=== PATIENT | male | born 1985 | race Caucasian/White ===

== ENCOUNTER 2017-03-11 21:50 | Emergency (ER) | payer BC ==
[~2017-03-11] VITALS: Ht 185.4 cm; Wt 150.0 kg
[2017-03-11 21:55] VITALS: Ht 185.4 cm; Wt 150.0 kg
--- OUTSIDE RECORDS SUMMARY | 2017-03-11 21:56 | XMS REPORT | Referral Summary ---
Author Author [facility] Organization [facility] Address Unknown Phone Unavailable Care Team Providers Care Tar Processing Technician Name Role Phone Denia Mccall Primary Care Physician [phone] Encounter [facility] [id number] Date(s): 10/29/16 - 10/29/16 [facility] [address] [place] [address] Discharge Diagnosis: Asthma exacerbation Discharge Disposition: 01-Home or Self Care Attending Physician: Ceferino Loza MD Admitting Physician: Ceferino Loza MD Vital Signs Most recent to 1 oldest [Reference Range]: Temperature Oral 36.8 degC [35.8-37.3 degC] (10/29/16 2:56 AM) Peripheral Pulse 116 bpm Rate [60-100 bpm] *HI* (10/29/16 4:49 AM) Heart Rate Monitored 94 bpm [60-100 bpm] (10/29/16 3:53 AM) Respiratory Rate 16 br/min [14-20 br/min] (10/29/16 4:49 AM) Blood Pressure 142/98 mmHg [90-140/60-90 mmHg] *HI* (10/29/16 4:49 AM) SpO2 99 % (10/29/16 4:49 AM) Problem List Condition Effective Dates Status Health Status Informant Asthma(Confirmed) Active MRSA(Confirmed) Active Allergies, Adverse Reactions, Alerts Substance Reaction Severity Status ibuprofen Rash Severe Active Anaphylactic reaction Medications Colace 100 mg oral capsule 100 mg 1 caps, Oral, BID, as needed for constipation, while taking pain medication, # 20 caps, 0 Refill(s) Start Date: 10/01/16 Status: Ordered Diflucan 150 mg oral tablet 150 mg 1 tabs, Oral, Once, # 1 tabs, 0 Refill(s) Start Date: 06/06/16 Status: Ordered HYDROcodone-acetaminophen 5 mg-325 mg oral tablet 1 tabs, Oral, q4hr, Pain Moderate (4-6), # 12 tabs, 0 Refill(s) Start Date: 10/01/16 Status: Ordered Daniel 5 mg-325 mg oral tablet 1 tabs, Oral, q6hr, as needed for pain, # 12 tabs, 0 Refill(s) Start Date: 06/06/16 Status: Ordered predniSONE 20 mg oral tablet 20 mg 1 tabs, Oral, Daily, day 1, 3 tabs 60mg day 2, 2 tabs 40 mg day 3-5, 1 tab 20 mg, # 8 tabs, 0 Refill(s) Start Date: 10/29/16 Stop Date: 10/29/17 Status: Ordered ProAir HFA 90 mcg/inh inhalation aerosol 2 puffs, Inhalation, QID, as needed for wheezing, # 8.5 g, 0 Refill(s) Start Date: 10/29/16 Status: Ordered Results No data available for this section Immunizations No data available for this section Procedures Procedure Date Related Diagnosis Body Site Operation on retina Social History Social History Type Response Smoking Status Never smoker Assessment and Plan No data available for this section
--- OUTSIDE RECORDS SUMMARY | 2017-03-11 21:56 | XMS REPORT | Referral Summary ---
Author Author [facility] Organization [facility] Address Unknown Phone Unavailable Care Team Providers Care Paperback Machine Operator Name Role Phone Denia Mccall Primary Care Physician [phone] [facility] [id number] Date(s): 10/03/16 - 10/03/16 [facility] [address] [place] [address]- Discharge Diagnosis: External hemorrhoid Discharge Diagnosis: Change or removal of wound packing Discharge Disposition: 01-Home or Self Care Attending Physician: Anil Herrera MD Admitting Physician: Anil Herrera MD Vital Signs Most recent to 1 oldest [Reference Range]: Temperature Oral 36.9 degC [35.8-37.3 degC] (10/03/16 5:22 PM) Peripheral Pulse 106 bpm Rate [60-100 bpm] *HI* (10/03/16 7:02 PM) Respiratory Rate 16 br/min [14-20 br/min] (10/03/16 7:02 PM) Blood Pressure 126/93 mmHg [90-140/60-90 mmHg] (10/03/16 7:02 PM) SpO2 100 % (10/03/16 7:02 PM) Problem List Condition Effective Dates Status Health Status Informant MRSA(Confirmed) Active Allergies, Adverse Reactions, Alerts Substance Reaction Severity Status ibuprofen Rash Severe Active Anaphylactic reaction Medications Aveeno Anti-Itch 3%-1% topical cream 1 dia, Topical, TID, X 14 days, # 50 g, 0 Refill(s) Start Date: 10/03/16 Stop Date: 10/17/16 Status: Ordered Colace 100 mg oral capsule 100 mg [...] 0 Refill(s) Start Date: 10/01/16 Status: Ordered [place] 5 mg-325 mg oral tablet 1 tabs, Oral, q6hr, X 4 days, # 16 tabs, 0 Refill(s) Start Date: 10/03/16 Stop Date: 10/07/16 Status: Ordered [place] 5 mg-325 mg oral tablet 1 tabs, Oral, q6hr, as needed for pain, # 12 tabs, 0 Refill(s) Start Date: 06/06/16 Status: Ordered Percocet 5/325 oral tablet 1 tabs, Oral, q6hr, as needed for pain, X 3 days, # 12 tabs, 0 Refill(s) Start Date: 10/03/16 Stop Date: 10/06/16 Status: Ordered Results No data available for this section Immunizations No data available for this section Procedures Procedure Date Related Diagnosis Body Site Operation on retina Social History Social History Type Response Smoking Status Never smoker Assessment and Plan No data available for this section
--- OUTSIDE RECORDS SUMMARY | 2017-03-11 21:56 | XMS REPORT | Referral Summary ---
Author Author [facility] Organization [facility] Address Unknown Phone Unavailable Care Team Providers Care Electronic Publisher Name Role Phone No PCP, Pt States Primary Care Physician [phone] Encounter [facility] Date(s): 06/06/16 - 06/06/16 [facility] [address] [place] [address] Discharge Diagnosis: Fractured tooth Discharge Disposition: 01-Home or Self Care Attending Physician: Ceferino Loza MD Admitting Physician: Ceferino Loza MD Vital Signs Most recent to 1 oldest [Reference Range]: Temperature Oral 36.8 degC [35.8-37.3 degC] (06/06/16 5:05 AM) Peripheral Pulse 92 bpm Rate [60-100 bpm] (06/06/16 5:05 AM) Heart Rate Monitored 90 bpm [60-100 bpm] (06/06/16 6:13 AM) Respiratory Rate 20 br/min [14-20 br/min] (06/06/16 6:13 AM) Blood Pressure 141/90 mmHg [90-140/60-90 mmHg] *HI* (06/06/16 6:13 AM) Mean Arterial 108 mmHg Pressure, Cuff (06/06/16 6:13 AM) SpO2 95 % (06/06/16 6:13 AM) Problem List Condition Effective Dates Status Health Status Informant MRSA(Confirmed) Active Allergies, Adverse Reactions, Alerts Substance Reaction Severity Status ibuprofen Rash Severe Active Anaphylactic reaction Medications clindamycin 150 mg oral capsule 450 mg 3 caps, Oral, q8hr, X 7 days, # 63 caps, 0 Refill(s) Start Date: 06/06/16 Stop Date: 06/13/16 Status: Ordered Diflucan 150 mg oral tablet 150 mg 1 tabs, Oral, Once, # 1 tabs, 0 Refill(s) Start Date: 06/06/16 Status: Ordered [place] 5 mg-325 mg oral tablet 1 tabs, Oral, q6hr, as needed for pain, # 12 tabs, 0 Refill(s) Start Date: 06/06/16 Status: Ordered Results No data available for this section Immunizations No data available for this section Procedures No data available for this section Social History Social History Type Response Smoking Status Never smoker Assessment and Plan No data available for this section
--- OUTSIDE RECORDS SUMMARY | 2017-03-11 21:56 | XMS REPORT | Referral Summary ---
Author Author [facility] Organization [facility] Address Unknown Phone Unavailable Care Team Providers Care Finish Off Operator Name Role Phone Denia Mccall Primary Care Physician [phone] Encounter [facility] [id number] Date(s): 10/01/16 - 10/01/16 [facility] [address] [place] [address]- Discharge Diagnosis: Thrombosed hemorrhoids Discharge Disposition: 01-Home or Self Care Attending Physician: Anil Herrera MD Admitting Physician: Anil Herrera MD Vital Signs Most recent to 1 oldest [Reference Range]: Temperature Oral 36.8 degC [35.8-37.3 degC] (10/01/16 6:20 PM) Peripheral Pulse 100 bpm Rate [60-100 bpm] (10/01/16 7:55 PM) Respiratory Rate 18 br/min [14-20 br/min] (10/01/16 7:55 PM) Blood Pressure 140/103 mmHg [90-140/60-90 mmHg] (10/01/16 7:55 PM) SpO2 96 % (10/01/16 7:55 PM) Problem List Condition Effective Dates Status [...] 0 Refill(s) Start Date: 10/01/16 Status: Ordered [place] 5 mg-325 mg oral tablet 1 tabs, [...]
--- OUTSIDE RECORDS SUMMARY | 2017-03-11 21:56 | XMS REPORT | Continuity of Care Document ---
Author Author [facility] Organization [facility] Address Unknown Phone Unavailable Allergies Active Description Code Type Severity Reaction Onset Reported/Identified Relationship to Patient Clinical Status Yes No Known Allergies No Known Allergies Drug Allergy Unknown N/A 08/11/2013 Medications Problems Procedures Results Test Result Range CHEM/HEM PROFILE-BEDSIDE - 08/11/13 12:06 POTASSIUM 4.3 mmol/L 3.5-5.3 METHOD Bedside ANION GAP 19 mmol/L 10-20 METHOD Bedside GLUCOSE 254 mg/dL 70-99 BLOOD UREA NITROGEN 12 mg/dL 7-20 CREATININE 0.8 mg/dL 0.8-1.3 HEMOGLOBIN 16.0 gm/dL 14.0-18.0 HEMATOCRIT 47.0 % 40.0-54.0 SODIUM 138 mmol/L 135-148 CHLORIDE 101 mmol/L 98-110 CARBON DIOXIDE 25 mmol/L 21-32 CALCIUM IONIZED 4.8 mg/dL 4.5-5.3 CBC W/DIFF - 08/11/13 12:15 EOSINOPHIL # 0.2 k/cumm 0.1-0.5 EOSINOPHIL % 2 % 2-4 GRANULOCYTE # 4.7 k/cumm 2.0-9.0 GRANULOCYTE % 61 % 50-75 LYMPHOCYTE # 2.3 k/cumm 1.0-4.0 LYMPHOCYTE % 29 % 20-30 MEAN CELL HGB 27.4 pg 27.0-33.0 MEAN CELL HGB CONCENTRATION 34.2 g/dL 32.0-37.0 MEAN CELL VOLUME 80.0 fl 80.0-100.0 MONOCYTE # 0.6 k/cumm 0.1-1.0 MONOCYTE % 8 % 4-6 RED BLOOD CELL 5.85 m/cumm 4.00-6.00 RED CELL DISTRIBUTION WIDTH 13.8 % 11.0- 15.6 WHITE BLOOD CELL 7.8 k/cumm 5.0-10.0 HEMOGLOBIN 16.0 gm/dL 14.0-18.0 HEMATOCRIT 46.8 % 40.0-54.0 PLATELET COUNT 181 k/cumm 150-400 URINALYSIS WITH MICROSCOPIC - 08/11/13 12:15 UA LEUKOCYTE ESTERASE DIPSTICK NEGATIVE NEGATIVE UA NITRITE DIPSTICK NEGATIVE NEGATIVE UA PROTEIN DIPSTICK TRACE NEGATIVE UA GLUCOSE DIPSTICK 3+ NEGATIVE UA KETONE DIPSTICK NEGATIVE NEGATIVE UA UROBILINOGEN DIPSTICK NORMAL NORMAL UA BILIRUBIN DIPSTICK NEGATIVE NEGATIVE UA BLOOD DIPSTICK 2+ NEGATIVE UA RBC 3-5 rbc/hpf 0 - 3 UA VOLUME FOR EXAM 3.0 mL (12mL STD) UA WBC 0-1 wbc/hpf 0 - 5 UA SPECIFIC GRAVITY 1.032 1.015-1.025 UR PH 5.0 5.0-7.0 URINALYSIS, ROUTINE - 09/14/15 11:56 UA LEUKOCYTE ESTERASE DIPSTICK NEGATIVE NEGATIVE UA NITRITE DIPSTICK NEGATIVE NEGATIVE UA PROTEIN DIPSTICK TRACE NEGATIVE UA GLUCOSE DIPSTICK 3+ NEGATIVE UA KETONE DIPSTICK 1+ NEGATIVE UA UROBILINOGEN DIPSTICK NORMAL NORMAL UA BILIRUBIN DIPSTICK NEGATIVE NEGATIVE UA BLOOD DIPSTICK NEGATIVE NEGATIVE UA SPECIFIC GRAVITY 1.015 1.015-1.025 UR PH 6.0 5.0-7.0 UA MICROSCOPIC - 09/14/15 11:56 UA EPITHELIAL CELLS 1+ epi/hpf 0 - 1+ UA RBC 0 rbc/hpf 0 - 3 UA VOLUME FOR EXAM 12.0 mL (12mL STD) UA WBC 2-5 wbc/hpf 0 - 5 Encounters [facility] No. Visit Date/Time Discharge Status Pt. Type Provider Facility Loc./Unit Complaint [id number] 09/15/2015 08:36:00 2014 09:25:00 DIS Emergency Juan Duncan DO [facility] W[facility]EDW [id number] 09/14/2015 11:42:00 2014 12:40:00 DIS Emergency Adrian Wilson DO [facility] W[facility]EDW [id number] 08/11/2013 11:48:00 2012 14:28:00 DIS Emergency Otoniel ROWLAND, Jaqui Chau [facility] W[facility]EDS
[2017-03-11] MEDS ORDERED: LIRA0.6P SQ (22:13)
[2017-03-11] MEDS ORDERED: CETI-115 PO (22:13)
--- NOTE | 2017-03-11 22:28 | ERPDOC ---
Departure Disposition Decision Date: March 12, 2017 Disposition Decision Time: 00:33 (ZENOBIA GUTIERREZ APRN) Disposition: 01 DISCHARGED HOME, SELF-CARE Impression Impression (ZENOBIA GUTIERREZ APRN) Impression: Primary Impression: Viral illness Additional Impressions: Hyperglycemia without ketosis Dehydration Seen By: Mid-level only (ZENOBIA GUTIERREZ APRN) Referrals: [facility] 1 Week Patient Instructions: Balanitis (ED), Type 2 Diabetes in Adults (ED), Viral Syndrome (ED) Problems/Meds/Labs Reviewed?: Yes Medications reviewed and manag: Yes (ZENOBIA GUTIERREZ APRN) Follow up care ordered?: Yes Mental Status: Alert, Oriented (ZENOBIA GUTIERREZ APRN) Scripts Hydrocodone/Acetaminophen ([place] 5-325 Tablet) 5-325 Tablet 1 TAB PO Q4HR Y for PAIN for 2 Days, #12 TAB 0 Refills Prov: LÁZARO NEVAREZ DO 03/12/17 Clotrimazole/Betamethasone Dip (Lotrisone Cream) 15 Gm Cream..g. 1 APPLIC TOP BID for 5 Days, G Prov: ZENOBIA GUTIERREZ APRN 03/12/17 HPI - General Medical General Chief Complaint: Diabetic Problem Stated Complaint: BLOOD SUGAR FLUCTUATING,HURTS ALL OVER,CHILLING Time Seen by Provider: 22:24 Source: patient, family Exam Limitations: no limitations (ZENOBIA GUTIERREZ APRN) Time Seen by Provider: 22:24 (LÁZARO NEVAREZ DO) HPI - General Medical Initial Comments Patient complains of overall malaise, body aches and chills for t he past couple of days. Reports started victoza a few weeks ago and possibly his sx first started then . His major complaints are related to all over body aching and "feels like i got hit by a truck" Patient also is concerned about having HPV and these sx being related to that. Patient is currently being treated for balanitis with diflucan and monostat cream. Occurred At: home Onset: Rapid Duration: 12-24 hrs Modifying Factors: WORSE WITH: cold therapy Associated Symptoms: cough, loss of appetite, DENIES: diaphoresis, fever/chills , syncope Hx of Similar Symptoms: No (ZENOBIA GUTIERREZ APRN) Allergies: Coded Allergies: ibuprofen (Verified Allergy, Unknown, 03/11/17) meloxicam (Verified Allergy, Unknown, 03/11/17) metformin (Verified Allergy, Unknown, 03/11/17) buspirone (Verified Adverse Reaction, Unknown, VOMITING, 03/11/17) Review of Systems Constitutional Constitutional: see HPI, DENIES: appetite decrease, chills, fever (ZENOBIA GUTIERREZ E SALON MANAGER) Eyes General: DENIES: burning, itching Lids/Accessories: DENIES: erythema, lumps/nodules, swelling Vision: DENIES: double vision (ZENOBIA GUTIERREZ E WILDER) ENMT Ears: DENIES: pain Hearing: DENIES: tinnitus Balance: DENIES: vertigo Sinuses: DENIES: congestion Nose: DENIES: pain Mouth/Throat: DENIES: scratchy throat, sore throat (ZENOBIA GUTIERREZ E SALON MANAGER) Cardiovascular Cardiac: DENIES: chest pain, orthopnea Rhythm/Rate: DENIES: irregular beat Vascular: DENIES: pedal edema, unilateral swelling (ZENOBIA GUTIERREZ APRN) Pulmonary Respiratory: DENIES: cough, pleuritic chest pain, sputum (ZENOBIA GUTIERREZ E SALON MANAGER ) GI Upper Abdomen: DENIES: nausea, pain Lower Abdomen: DENIES: diarrhea (ZENOBIA GUTIERREZ APRN) General: DENIES: dysuria, frequency (ZENOBIA GUTIERREZ E SALON MANAGER) Neurological General: headache, weakness (generalized ) (ZENOBIA GUTIERREZ E WILDER) Hematologic/Lymphatic Hematologic/Lymphatic: DENIES: anemia (ZENOBIA GUTIERREZ APRN) Physical Exam General General Nourishment: well nourished, well developed, obese (ZENOBIA GUTIERREZ E WILDER) Vitals and Pain First Documented Vital Signs Date Time Temp Pulse Resp B/P Pulse Ox O2 Delivery O2 Flow Rate FiO2 03/11/17 21:55 98.0 112 18 149/86 96 Room Air (LÁZARO NEVAREZ DO) Vitals and Pain Weight: Kilograms: 150.000 Height (feet): 6 Height (inches): 1.00 Triage Pain Scale: (ZENOBIA GUTIERREZ APRN) Normal Exams: Head: Normocephalic w/o trauma ENMT: No facial trauma, nasal exudates, pharyngeal erythema, or exudates are noted Chest/Resp: Clear all novak, with good airflow, and symmetry bilaterally CV: Regular rate and rhythm, without murmur or gallop, Pulses 2+ all extremities, capillary refill, <2 seconds all ext., no pedal edema noted Abdomen: Bowel sounds positive, soft, non-tender, non-distended, no hepatosplenomegaly, masses or bruits noted Lymphatic: No lymphadenopathy, or lymphedema noted Musculoskeletal: No tenderness, or deformity noted, good range of motion, all extremities Integumentary: No rashes, hives, or bruising noted, hair and nails, without abnormality Neurologic: Patient is alert, and oriented, cranial nerves, motor/sensory/ cerebellar, exams w/o gross deficits, to observation Psychiatric: Patient exhibits, appropriate attention, emotion and affect (ZENOBIA GUTIERREZ APRN) Differential Diagnoses Considering: Acute AK, CVA, Hypo/Hyperkalemia, Hypo/Hypernatremia, Intracranial Hemorrhage, Medication Effect (ZENOBIA GUTIERREZ APRN) Progress Results/Orders Orders Procedure Category Date Status Time Cmp - Comprehensive LAB 03/11/17 Complete Metabolic 22:25 Cbc W/Auto LAB 03/11/17 Complete Diff-Reflex Manual 22:25 Ua, Dip Wreflex LAB 03/11/17 Complete Microsc & Finger Waver 22:25 Bgm (Ed) EDM 03/11/17 Transmitted 22:25 Iv Lock (Ed Only) EDM 03/11/17 Transmitted 22:25 Normal Saline (Normal PHA 03/11/17 Logged Saline Iv) 22:30 Ondansetron Inj PHA 03/11/17 Logged (Zofran) 22:45 Hydromorphone PHA 03/11/17 Logged (Dilaudid) 22:45 Hydrocodone/Acetaminophen PHA 03/12/17 Complete ([place] 5/325) 00:15 Blood Glucose DARON 03/12/17 In Process Assessment Bgm 00:13 Normal Saline (Normal PHA 03/12/17 Logged Saline Iv) 00:45 (LÁZARO NEVAREZ DO) Lab Results Laboratory Tests Test 03/11/17 22:02 03/11/17 22:48 03/12/17 00:13 03/12/17 00:21 Glucometer 240mg/dL 258mg/dL White Blood Count 7.5T/MM3 Red Blood Count 5.35M/MM3 Hemoglobin 15.3GM/DL Hematocrit 42.9% Mean Corpuscular Volume 80.2UM3 Mean Corpuscular Hemoglobin 28.6UUG Mean Corpuscular Hemoglobin Concent 35.7GM/DL RDW Standard Deviation 38.7FL Platelet Count 163T/MM3 Mean Platelet Volume 9.7UM3 Immature Granulocyte % (Auto) 0.3% Neutrophils (%) (Auto) 58.2% Lymphocytes (%) (Auto) 30.4% Monocytes (%) (Auto) 9.1% Eosinophils (%) (Auto) 1.7% Basophils (%) (Auto) 0.3% Absolute Immature Granulocyte (auto 0.02T/MM3 Absolute Neutrophils (auto) 4.3T/MM3 Absolute Lymphocytes (auto) 2.3T/MM3 Absolute Monocytes (auto) 0.7T/MM3 Absolute Eosinophils (auto) 0.1T/MM3 Absolute Basophils (auto) 0.0T/MM3 Turbidity < 20 Sodium Level 139MEQ/L Potassium Level 3.7MEQ/L Chloride Level 102MEQ/L Carbon Dioxide Level 25MEQ/L Anion Gap 12MEQ/L Blood Urea Nitrogen 14.0MG/DL Creatinine 0.6MG/DL Glomerular Filtration Rate Calc 157 BUN/Creatinine Ratio 23RATIO Glucose Level 299MG/DL Calculated Osmolality 280MOSM/KG Calcium Level 9.2MG/DL Total Bilirubin 1.10MG/DL Icterus Index < 2 Aspartate Amino Transf (AST/SGOT) 34U/L Alanine Aminotransferase (ALT/SGPT) 67U/L Alkaline Phosphatase 55U/L Total Protein 6.6G/DL Albumin 4.3G/DL Globulin 2.3G/DL Albumin/Globulin Ratio 1.9RATIO Chemistry Specimen Hemolysis 25 Urine Collection Type Voided-not cc-midstr Urine Color Yellow Urine Turbidity Clear Urine pH 5.5 Urine Specific [place] >=1.030 Urine Protein Negative Urine Glucose (UA) 2+ Urine Ketones Trace Urine Blood Negative Urine Nitrite Negative Urine Bilirubin Negative Urine Urobilinogen 0.2EU/DL Urine Leukocyte Esterase Negative Urinalysis Comment Microscopic not ind. (LÁZARO NEVAREZ DO) Medications Current ED Medications Sodium Chloride (Normal Saline IV) 1,000 ml @ 1,000 mls/hr Q1H ONCE IV Last administered on 03/11/17 22:59; Start 03/11/17 at 22:30; Stop 03/11/17 at 23:29 ; Status UNV Ondansetron HCl (Zofran) 4 mg O ONCE IV Last administered on 03/11/17 22:59; Start 03/11/17 at 22:45; Stop 03/11/17 at 22:46; Status UNV Hydromorphone HCl (Dilaudid) 0.5 mg O ONCE IV Last administered on 03/11/17 23:03; Start 03/11/17 at 22:45; Stop 03/11/17 at 22:46; Status UNV Acetaminophen/ Hydrocodone Bitart 1 tab 1 tab O ONCE PO Last administered on 00:19; Start 03/12/17 at 00:15; Stop 03/12/17 at 00:16; Status DC Sodium Chloride (Normal Saline IV) 1,000 ml @ 1,000 mls/hr Q1H ONCE IV Last administered on 03/12/17 00:34; Start 03/12/17 at 00:45; Stop 03/12/17 at 01:44 ; Status UNV (LÁZARO NEVAREZ DO) Progress Progress 2330: States is feeling some better after 0.5 mg dilaudid. Patient states pain is from a 8/10 to a 5/10. Unable to take NSAID because of an allergy. Lab is back and indicates hyperglycemia but otherwise fairly normal. Based on exam and history and physical, it is likely a viral infection patient is dealing with. Encouraged fluids and rest the next couple of days. 0015: Awaiting patient to void to check UA. Is taking po fluids now. 1125: UA has trace ketones; no evidence of infection. Blood sugar is 250 Has not had his victoza yet today. Will dismiss with instructions to take when he gets home; follow up with PCP on Tuesday. (ZENOBIA GUTIERREZ APRN) ZENOBIA GUTIERREZ APRN March 11, 2017 22:28 LÁZARO NEVAREZ DO March 12, 2017 01:48
[2017-03-11] MEDS ORDERED: NORMAL SALINE 1,000 ML IV ONE (22:30)
--- NOTE | 2017-03-11 22:35 | NUR ---
ZENOBIA HDZ IN WITH PT
[2017-03-11] MEDS ORDERED: HYDROMORPHONE 2mg/ml INJECTION IV ONE (22:45)
[2017-03-11] MEDS ORDERED: ONDANSETRON 4mg/2ml INJECTION IV ONE (22:45)
[2017-03-11 22:55] LABS: BASOPHILS % (AUTO) 0.3 % (0-2); EOSINOPHILS # (AUTO) 0.1 T/MM3 (0-0.5); EOSINOPHILS % (AUTO) 1.7 % (0-4); HCT - HEMATOCRIT 42.9 % (41-53); HGB - HEMOGLOBIN 15.3 GM/DL (13.5-17.5); IMMATURE GRANULOCYTE # (AUTO) 0.02 T/MM3 (0.00-0.03); IMMATURE GRANULOCYTE % (AUTO) 0.3 % (0.0-0.5); LYMPHOCYTES # (AUTO) 2.3 T/MM3 (1-4.8); LYMPHOCYTES % (AUTO) 30.4 % (23-45); MEAN CORPUSCULAR HGB 28.6 UUG (26-34); MEAN CORPUSCULAR HGB CONC(MCHC 35.7 GM/DL (31-37); MEAN CORPUSCULAR VOLUME 80.2 UM3 (80-100); MEAN PLATELET VOLUME 9.7 UM3 (9.4-12.4); MONOCYTES # (AUTO) 0.7 T/MM3 (0-0.8); MONOCYTES % (AUTO) 9.1 % (0-9.0); NEUTROPHILS #(AUTO)-ABSOLUTE 4.3 T/MM3 (1.8-7.7); NEUTROPHILS % (AUTO) 58.2 % (33-66); RED BLOOD COUNT 5.35 M/MM3 (4.50-5.90); WBC - WHITE BLOOD COUNT 7.5 T/MM3 (4.5-11.0)
[2017-03-11 23:04] LABS: ALBUMIN 4.3 G/DL (3.5-5.0); ALBUMIN/GLOBULIN RATIO 1.9 RATIO (1.1-2.2); ALKALINE PHOSPHATASE 55 U/L (38-126); ALT (SGPT) 67 U/L (21-72); ANION GAP 12 MEQ/L (5-15); AST (SGOT) 34 U/L (17-59); BUN/CREATININE RATIO 23 RATIO (6-26); CALCIUM 9.2 MG/DL (8.4-10.2); CHLORIDE 102 MEQ/L (98-107); CO2 - CARBON DIOXIDE 25 MEQ/L (22-30); CREATININE 0.6 MG/DL (0.8-1.5); GLOMERULAR FILTRATION RATE 157; GLUCOSE 299 MG/DL (75-110); POTASSIUM 3.7 MEQ/L (3.6-5); SODIUM 139 MEQ/L (134-144); TOTAL PROTEIN 6.6 G/DL (6.3-8.2)
--- OUTSIDE RECORDS SUMMARY | 2017-03-11 23:12 | XMS REPORT | Continuity of Care Document ---
Author Author [facility] Organization [facility] Address Unknown Phone Unavailable Allergies Active Description [...] Status Pt. Type Provider Facility Loc./Unit Complaint [id number] 09/15/2015 08:36:00 2014 09:25:00 DIS Emergency Juan Duncan DO [facility] W.EDW [id number] 09/14/2015 11:42:00 2014 12:40:00 DIS Emergency Adrian Wilson DO [facility] W[facility]ED[facility] [id number] 08/11/2013 11:48:00 2012 14:28:00 DIS Emergency Otoniel ROWLAND, Jaqui Chau [facility] W[facility]EDS
--- NOTE | 2017-03-11 23:30 | NUR ---
PO FLUIDS PROVIDED PER DR RAY
[2017-03-12] MEDS ORDERED: HYDROCODONE/APAP 5 mg/325 mg TABLET PO ONE (00:15)
[2017-03-12 00:23] LABS: BLOOD, URINE NEGATIVE (NEGATIVE); COLOR,URINE YELLOW (YELLOW); LEUKOCYTE ESTERASE ,URINE NEGATIVE (NEGATIVE); NITRITE,URINE NEGATIVE (NEGATIVE); UROBILINOGEN,URINE 0.2 EU/DL (NORMAL)
[2017-03-12] MEDS ORDERED: CLOT15CR4 TOP (00:39)
[2017-03-12] MEDS ORDERED: NORMAL SALINE 1,000 ML IV ONE (00:45)
[2017-03-12] MEDS ORDERED: HYDR-4246 PO (01:47)
[2017-03-12 01:55] VITALS: BP 123/70; PULSE 90; RESP 20; TEMP 98.7; O2SAT 96
--- NOTE | 2017-03-12 01:55 | NUR ---
DISCHARGE DISMISSAL INSTRUCTIONS AND HOME SCRIPTS GIVEN TO PT. QUESTIONS WERE ANSWERED TO HIS SATISFACTION, DC'D TO HOME IN CARE OF HIS SIGNIFICANT OTHER.
== END 2017-03-12 01:55 | disposition home or self-care (01) ==
LOC: ED 21:50
DX: B34.9 Viral infection, unspecified (principal); E86.0 Dehydration; E11.65 Type 2 diabetes mellitus with hyperglycemia; Z79.84 Long term (current) use of oral hypoglycemic drugs
CPT/HCPCS: 80053; 81003; 82948; 85025; 96361; 96374; 96375; 99284; J1170; J2405; J7030